=== PATIENT | female | born 1960 | race American Indian/Alaskan Native ===

== ENCOUNTER 2021-08-24 07:07 | Day surgery (SDC) | payer MEDICARE ==
[~2021-08-24 07:07] MED LIST: SODIUM CHLORIDE 0.9% 1000 ML 1,000 ML IV SCH
--- NOTE | 2021-08-24 08:01 | Anesthesia Consultation ---
Anesthesia Consult and Med Hx Date of service: 08/24/21 - Airway Anesthetic Teeth Evaluation: Partials (Upper and lower) ROM Head & Neck: Adequate Mental/Hyoid Distance: Adequate Mallampati Class: Class I Intubation Access Assessment: Probably Good - Pulmonary Exam CTA: Yes - Pre-Operative Health Status ASA Pre-Surgery Classification: ASA3 Proposed Anesthetic Plan: MAC - Pulmonary Hx Smoking: No Hx Asthma: Yes SOB: Yes Hx Sleep Apnea: Yes (Uses CPAP Machine) - Cardiovascular System Hx Hypertension: Yes Hx Coronary Artery Disease: Yes (high cholesterol) - Central Nervous System CVA: No - Gastrointestinal Hx Gastroesophageal Reflux Disease: Yes (Dysphagia/Esophageal stenosis) - Endocrine Hx Renal Disease: No Hx Insulin Dependent Diabetes: No Hx Non-Insulin Dependent Diabetes: No Hx Thyroid Disease: No - Other Systems Hx Alcohol Use: No Hx Obesity: Yes
--- NOTE | 2021-08-24 08:11 | Anesthesia Day of Surgery ---
Anesthesia Day of Surgery - Day of Surgery Patient Examined: Yes Patient H&P Reviewed: Yes Patient is NPO: No (Had water less than 3 hours before procedure time. Case delayed) Beta Blockers: No Cardiac Clearance: No Pulmonary Clearance: No
[2021-08-24] MEDS ORDERED: propofoL 200 MG/20 ML VIAL IV ONE ×2 (08:37→08:47)
[2021-08-24] MEDS ORDERED: fentaNYL 100 MCG/2 ML INJ ONE (08:37)
[2021-08-24] MEDS ORDERED: ONDANSETRON 4 MG/2 ML INJ ONE (08:38)
--- NOTE | 2021-08-24 09:25 | Procedure Note ---
Date of procedure: 08/24/21 Pre-op diagnosis: Dysphagia/ colon Polyp Screening Post-op diagnosis: other (Mild, Benign Esophageal Stenosis (s/p Esophageal Dilation)/ Mild to Moderaqte Erosive Esophagitis/ Gastritis/No Peptic Ulcer disease noted/ R/O Eosinophilice Esophagitis/ Moderately,Severe Diverticular disease/ No Colon Polyps noted/ Minor, Internal Hemorrhoids) Anesthesia: [facility] [place] Surgeon: VIBHA CEBALLOS Estimated blood loss: minimal Pathology: list Specimen disposition: to lab Condition: stable Disposition: same day (Treat with PPI,Reglan,OTC Probiotics and encourage fiber intake. Soft food for today; avoid aspirin and NSAID for 5 days, otherwise resume previous medication and F/U in 1 to 2 weeks ([phone]).)
--- NOTE | 2021-08-24 09:36 | Operative Report ---
DATE OF SURGERY: 08/24/2021 PROCEDURES: Esophagogastroduodenoscopy with biopsy and esophageal dilation. INDICATIONS: This is a 61-year-old -[place] female, who has a history of mild benign esophageal stenosis and history of dysphagia that has required periodic esophageal dilation in the past. Lately, she has been complaining of some symptoms for recurrence of dysphagia. EGD was done to assess for the issue and to do an esophageal dilation if needed. DESCRIPTION OF PROCEDURE: Procedure was done after getting informed consent with MAC anesthesia. The instrument was passed through the hypopharynx into the esophagus, which showed some mild benign esophageal stenosis. This was dilated with a 20 mm balloon that was maintained for a minute at the end of the procedure. There was some [id number] distal erosive esophagitis. Photodocumentation and biopsy was done from the distal esophagus to assess for the severity of the erosive esophagitis as well as from the mid esophagus to assess for eosinophilic esophagitis. Stomach showed gastritis. Biopsy was done from the gastric antrum, gastric body and angular incisura to rule out for H. pylori and atrophic gastritis. The pylorus was patent. The duodenum in the first and second portion appeared normal. ASSESSMENT: Dysphagia, mild benign esophageal stenosis, status post esophageal dilation, mild to moderate erosive esophagitis, rule out eosinophilic esophagitis, gastritis, patent pylorus and no peptic ulcer disease noted. PLAN: To treat the patient with PPI and Reglan. Have the patient avoid aspirin and aspirin-related products for the next few days. The patient will also be encouraged to take fiber supplements and follow up in the office in 1-2 weeks' time. A colonoscopy will be done as part of colon polyp screening because of the prior history of the patient's colon polyps. Procedure was done in the GI lab with the assistance of the GI lab team, which included the GI nurse, the pathology lab technician and with the assistance of anesthesia. TID: [id number] RECEIPT: [id number] TASHA/ESTEPHANIA
--- NOTE | 2021-08-24 10:03 | Operative Report ---
DATE OF SURGERY: 08/24/2021 PROCEDURE PERFORMED: Colonoscopy. INDICATIONS: This is a 61-year-old -[place] female who has had problems with dysphagia. She underwent EGD and dilation prior to the colonoscopy. Colonoscopy was done as part of colon polyp screening because of the prior history of patient's colon polyps. DESCRIPTION OF PROCEDURE: Procedure was done after getting informed consent. With MAC anesthesia, initial rectal exam was unremarkable. The instrument was passed through the rectum onto the cecum, which was identified with ileocecal valve and appendiceal orifice. The cecum was also visualized on the retroverted view. Then, the terminal ileum was briefly intubated and showed normal mucosa. There was extensive diverticula noted throughout the colon. There were some diverticula, some of which were deep noted in the proximal colon as well, few in the transverse colon and moderate in the left colon. The rectum showed minor internal hemorrhoid. On the retroverted view, there were no colon polyps noted. There were no bleeding associated with the procedure. ASSESSMENT: Colon polyp screening, history of colon polyps, no colon polyps at present, moderate diverticular disease that were scattered throughout the colon, minor internal hemorrhoid. The patient will be encouraged to take fiber supplements, also asked to take PPI because of the EGD findings of esophagitis and gastritis, placed on Reglan and encouraged to take fiber supplements and follow up in the office in 1-2 weeks' time. Procedure was done in the GI lab with assistance of the GI lab team, which included the GI nurse, the watch technician and with the assistance of Anesthesia. TID: [id number] RECEIPT: [id number] TASHA/SOFIE/MARK
[2021-08-24 10:23] VITALS: BP 143/64
--- NOTE | 2021-08-24 11:00 | Post Anesthesia Evaluation ---
- Post Anesthesia Evaluation Patient Participated: Yes Airway Patent: Yes Stable Respiratory Function: Yes Nausea/Vomiting: No Temp > 96.8F: Yes Pain Manageable: Yes Adequeate Hydration: Yes Anesthesia Complications: No
== END 2021-08-24 10:30 | disposition home or self-care (01) ==
LOC: GIO 07:07
DX: Z12.11 Encounter for screening for malignant neoplasm of colon (principal); R13.10 Dysphagia, unspecified; K22.2 Esophageal obstruction; K57.30 Diverticulosis of large intestine without perforation or abscess without bleeding; K64.8 Other hemorrhoids; K21.00 Gastro-esophageal reflux disease with esophagitis, without bleeding; K29.70 Gastritis, unspecified, without bleeding; I25.10 Atherosclerotic heart disease of native coronary artery without angina pectoris; E78.00 Pure hypercholesterolemia, unspecified; I10 Essential (primary) hypertension; J45.909 Unspecified asthma, uncomplicated; G47.30 Sleep apnea, unspecified; Z86.010 Personal history of colon polyps; E66.9 Obesity, unspecified; Z88.5 Allergy status to narcotic agent; Z79.899 Other long term (current) drug therapy; Z90.49 Acquired absence of other specified parts of digestive tract; Z98.890 Other specified postprocedural states; Z68.21 Body mass index [BMI] 21.0-21.9, adult
CPT/HCPCS: 43239; 43249; 88305; 88342; G0105; J2405; J2704; J3010; J7030; J7120; Q0162; C1726